=== PATIENT | female | born 1955 | race Caucasian/White ===

== ENCOUNTER 2016-09-08 17:32 | Emergency (ER) | payer MEDICAID, MEDICARE ==
[2016-09-08] MEDS ORDERED: Lidocaine 1% w/Epinephrine 1:100K 20 ML VIAL ONE (18:00)
[2016-09-08] MEDS ORDERED: Bacitracin Zinc 1 Packet ONE (18:10)
[2016-09-08] MEDS ORDERED: Adacel (T-DAP) 0.5 ML VIAL ONE (18:29)
== END 2016-09-08 18:27 | disposition home or self-care (01) ==
LOC: NAV ERS 17:32
DX: L02.412 Cutaneous abscess of left axilla (principal); E11.9 Type 2 diabetes mellitus without complications; E78.5 Hyperlipidemia, unspecified; E78.00 Pure hypercholesterolemia, unspecified; I10 Essential (primary) hypertension; Z79.4 Long term (current) use of insulin
CPT/HCPCS: 10060; 87070; 87205; 90471; 90715; J2001

== ENCOUNTER 2016-11-13 11:29 | Emergency (ER) | payer MEDICARE, MEDICAID ==
[2016-11-13] MEDS ORDERED: Sodium Chloride 0.9% 1,000 ML ONE ×2 (12:03→13:22)
[2016-11-13] MEDS ORDERED: Ondansetron HCl/PF 4 MG/2 ML Vial ONE (12:08)
[2016-11-13 12:26] LABS: INR-International Normal Ratio 1.1; PTT 29.8 SEC (22.9-36.1); Prothrombin Time 14.7 SEC (12.0-14.7)
[2016-11-13 12:36] LABS: ALT (SGPT) 36 U/L (0-55); AST (SGOT) 40 U/L (5-34); Albumin 3.7 g/dL (3.4-4.8); Alkaline Phosphatase 115 U/L (40-150); Anion Gap 17 mmol/L (10-20); BUN (Urea Nitrogen) 22 mg/dL (9.8-20.1); Bilirubin, Total 0.5 mg/dL (0.2-1.2); Calc. Creatinine Clearance 0 mL/min (70-130); Carbon Dioxide 20 mmol/L (23-31); Chloride 105 mmol/L (98-107); Estimated GFR-MDRD 68; Globulin 3.6 g/dL (2.4-3.5); Glucose 182 mg/dL (80-115); Lipase 40 U/L (8-78); Potassium 4.7 mmol/L (3.5-5.1); Protein, Total 7.3 g/dL (5.8-8.1); Sodium 137 mmol/L (136-145)
[2016-11-13 12:55] LABS: #Basophils 0.1 thou/uL (0.0-0.2); #Eosinphils 0.3 thou/uL (0.0-0.7); #Lymphocytes 1.4 thou/uL (1.20-3.40); #Monocytes 0.5 thou/uL (0.11-0.59); #Neutrophils 3.8 thou/uL (1.40-6.50); %Eosinophils 5.4 % (0.0-10.0); %Lymphocytes 23.6 % (21.0-51.0); %Monocytes 8.1 % (0.0-10.0); %Neutrophils 61.9 % (42.0-75.0); Anisocytosis SLIGHT = 6-15 cells (100X) (0-5/hpf); Hemoglobin 7.5 g/dL (12.0-16.0); Hypochromia MARKED = >30 cells (100X) (0-5/hpf); MDiff Complete? YES; Mean Corpuscular HGB CONC 30.3 g/dL (32.0-36.0); Mean Corpuscular Hemoglobin 21.7 pg (27.0-31.0); Mean Corpuscular Volume 71.8 fl (81.0-99.0); Microcytosis SLIGHT = 6-15 cells (100X) (0-5/hpf); Ovalocytes SLIGHT = 2-5 cells (100X) (0-1/hpf); Platelet Count 135 thou/uL (130-400); RBC Distribution Width 15.4 % (11.5-14.5); Red Blood Cell (RBC) Count 3.45 mill/uL (4.20-5.40); White Blood Cell (WBC) Count 6.1 thou/uL (4.8-10.8)
[2016-11-13] MEDS ORDERED: Morphine Sulfate 2 MG/ML SYRINGE ONE (13:56)
== END 2016-11-13 14:27 | disposition short-term general hospital (02) ==
LOC: NAV ERS 11:29
DX: R11.2 Nausea with vomiting, unspecified (principal); R19.7 Diarrhea, unspecified; D64.9 Anemia, unspecified; I25.10 Atherosclerotic heart disease of native coronary artery without angina pectoris; E11.9 Type 2 diabetes mellitus without complications; E78.5 Hyperlipidemia, unspecified; I10 Essential (primary) hypertension; K74.60 Unspecified cirrhosis of liver; Z87.891 Personal history of nicotine dependence; Z79.82 Long term (current) use of aspirin; Z79.4 Long term (current) use of insulin; Z79.899 Other long term (current) drug therapy
CPT/HCPCS: 36430; 80053; 83690; 85025; 85610; 85730; 86850; 86900; 86901; 96361; 96374; 96375; J2270; J2405; J7050; P9016

== ENCOUNTER 2016-11-18 08:02 | Outpatient (CLI) | payer MEDICARE, MEDICAID ==
[2016-11-18 08:32] LABS: Hemoglobin 7.7 g/dL (12.0-16.0)
== END 2016-11-18 08:03 | disposition home or self-care (01) ==
LOC: NAV LAB 08:02
PROVIDERS: ATTEND Family Medicine
DX: D64.9 Anemia, unspecified (principal)
CPT/HCPCS: 36415; 85014; 85018

== ENCOUNTER 2016-12-10 08:32 | Outpatient (CLI) | payer MEDICARE, MEDICAID | END 2016-12-10 08:33 | disposition home or self-care (01) | LOC: NAV LAB 08:32 | PROVIDERS: ATTEND Internal Medicine Cardiovascular Disease | DX: Z51.81 Encounter for therapeutic drug level monitoring (principal); Z79.899 Other long term (current) drug therapy | CPT/HCPCS: 36415; 80061; 84450; 84460 ==

== ENCOUNTER 2017-01-14 13:52 | Emergency (ER) | payer MEDICARE, MEDICAID ==
[2017-01-14 14:39] LABS: #Basophils 0.1 thou/uL (0.0-0.2); #Eosinphils 0.2 thou/uL (0.0-0.7); #Lymphocytes 2.2 thou/uL (1.20-3.40); #Monocytes 0.4 thou/uL (0.11-0.59); %Basophils 0.9 % (0.0-1.0); %Eosinophils 3.5 % (0.0-10.0); %Lymphocytes 32.1 % (21.0-51.0); %Monocytes 5.8 % (0.0-10.0); %Neutrophils 57.6 % (42.0-75.0); ALT (SGPT) 42 U/L (8-55); AST (SGOT) 56 U/L (5-34); Albumin 4.3 g/dL (3.4-4.8); Alkaline Phosphatase 116 U/L (40-150); Anion Gap 17 mmol/L (10-20); Anisocytosis MODERATE=16-30 cells (100X) (0-5/hpf); BUN (Urea Nitrogen) 17 mg/dL (9.8-20.1); Bilirubin, Total 0.4 mg/dL (0.2-1.2); CK (CPK) 87 U/L (29-168); Calc. Creatinine Clearance 0 mL/min (70-130); Calcium 9.7 mg/dL (7.8-10.44); Carbon Dioxide 21 mmol/L (23-31); Chloride 105 mmol/L (98-107); Estimated GFR-MDRD 71; Globulin 4.2 g/dL (2.4-3.5); Glucose 158 mg/dL (80-115); Hemoglobin 13.2 g/dL (12.0-16.0); MDiff Complete? YES; Mean Corpuscular HGB CONC 32.9 g/dL (32.0-36.0); Mean Corpuscular Hemoglobin 28.8 pg (27.0-31.0); Mean Corpuscular Volume 87.6 fl (81.0-99.0); Mean Platelet Volume 10.5 fL (7.4-10.4); Platelet Count 117 thou/uL (130-400); Potassium 4.3 mmol/L (3.5-5.1); Protein, Total 8.5 g/dL (6.0-8.3); RBC Distribution Width 18.9 % (11.5-14.5); RBC Morphology SCANNED; Red Blood Cell (RBC) Count 4.59 mill/uL (4.20-5.40); Sodium 139 mmol/L (136-145); White Blood Cell (WBC) Count 6.9 thou/uL (4.8-10.8)
[2017-01-14 14:41] LABS: CKMB 1.4 ng/mL (0-6.6); Troponin I Less than 0.010 ng/mL (< 0.028)
--- NOTE | 2017-01-14 15:07 | RAD ---
CHEST PA AND LATERAL: HISTORY: A 62-year-old female with stabbing chest pain primarily on the left side which began yesterday on an d off. FINDINGS: Atherosclerosis of the aorta. Surgical clips overlie the upper right chest and lower left chest ant eriorly. No confluent pneumonia, overt edema, or pleural effusion. IMPRESSION: Surgical clips overlie the chest. No acute intrathoracic disease. Atherosclerosis of the aorta. POS: [facility]
== END 2017-01-14 15:16 | disposition home or self-care (01) ==
LOC: NAV ERS 13:52
DX: R07.9 Chest pain, unspecified (principal); I25.10 Atherosclerotic heart disease of native coronary artery without angina pectoris; E11.9 Type 2 diabetes mellitus without complications; E78.5 Hyperlipidemia, unspecified; I10 Essential (primary) hypertension; Z87.891 Personal history of nicotine dependence; Z79.899 Other long term (current) drug therapy
CPT/HCPCS: 71020; 80053; 82553; 84484; 85025; 93005

== ENCOUNTER 2017-01-30 08:49 | Outpatient (CLI) | payer MEDICARE, MEDICAID ==
[2017-01-30] MEDS ORDERED: Iodixanol 320 MG/ML (100 ML BOT) ONE (09:00)
--- NOTE | 2017-01-30 10:57 | CT ---
CT ABDOMEN AND PELVIS WITH ORAL AND IV CONTRAST: Date: 01/30/17 HISTORY: Anemia, liver cirrhosis. FINDINGS: Comparison made with exams of 08/06/13 and 05/03/16. The lung bases are unremarkable. Nodular and cirrhotic appearance of the liver is again seen. There has been interval increase in the size of the low density lesion in the peripheral aspect of the inf erior right lobe of the liver currently measuring 12.0 mm (previously 7-8 mm). This was not seen on the exam of 08/06/13. No calcified gallstones are seen. The spleen measures 13.5 cm in length. The p ancreas and adrenal glands are unremarkable. There are cysts in the kidneys. No free air, free fluid, or lymphadenopathy noted in the abdomen or pelvis. There are vascular calci fications without evidence of aneurysmal dilatation of the abdominal aorta. There are degenerative c hanges in the spine. The small bowel loops are not abnormally dilated. There is fecal material in th e colon. IMPRESSION: 1. Cirrhosis of the liver. 2. Interval increase in the small low density lesion in the right lobe of the liver since 05/03/16. An ultrasound is recommended for better characterization. 3. Mild splenomegaly. 4. Bilateral renal cysts. POS: [facility]
== END 2017-01-30 08:50 | disposition home or self-care (01) ==
LOC: NAV CT 08:49
PROVIDERS: ATTEND Internal Medicine Gastroenterology
DX: D50.0 Iron deficiency anemia secondary to blood loss (chronic) (principal); K74.60 Unspecified cirrhosis of liver; J98.4 Other disorders of lung; R16.1 Splenomegaly, not elsewhere classified
CPT/HCPCS: 36415; 74177; 82565; Q9967

== ENCOUNTER 2017-06-16 07:57 | Outpatient (CLI) | payer MEDICARE, MEDICAID ==
--- NOTE | 2017-06-16 12:07 | ULT ---
ABDOMINAL ULTRASOUND: HISTORY: Followup liver lesion. COMPARISON: Comparison is made to a CT of 01/30/17 which described an enlarging low-density lesion in the lateral inferior right liver along the liver margin which measured approximately 1.2 cm on the 01/30/17 exam. This lesion has increased when compared to a CT of 05/03/16 at which time it measured approximately 0.8 cm. On today's ultrasound exam, a slightly hyperechoic lesion seen along the margin of the right lobe of the liver corresponding to a CT lesion. This lesion on ultrasound measures 1.7 cm and appears to sti ll continued enlargement. The liver is otherwise unremarkable in appearance. The gallbladder is slightly distended but there is no evidence of gallstone. Gallbladder wall thickn ess is normal. The common duct is normal caliber. Spleen is upper normal size measured at 14 cm. P ancreas is unremarkable as visualized. The right kidney measures 11.4 cm in length. Small cyst inferior right kidney measures approximately 1.0 cm. Left kidney measures 13 cm in length. There are at least 3 small cysts seen in the left kidney, all 3 measuring in the 1 to 1.5 cm range. No evidence of hydronephrosis. IMPRESSION: 1. Slightly hyperechoic mass lesion seen along the margin of the right lobe of the liver corresponds to the CT lesion. Measurements indicate continued enlargement of this lesion when compared to prior CT. 2. Mild splenomegaly. 3. Bilateral renal cysts as described. Due to the apparent enlargement of this liver lesion, further evaluation is recommended. Suggest MRI with and without contrast following liver mass protocol. POS: [facility]
== END 2017-06-16 07:58 | disposition home or self-care (01) ==
LOC: NAV ULT 07:57
PROVIDERS: ATTEND Internal Medicine Hospice and Palliative Medicine
DX: R10.11 Right upper quadrant pain (principal); N28.1 Cyst of kidney, acquired; R16.1 Splenomegaly, not elsewhere classified; R16.0 Hepatomegaly, not elsewhere classified
CPT/HCPCS: 76700

== ENCOUNTER 2017-06-25 15:07 | Emergency (ER) | payer MEDICARE, MEDICAID ==
[2017-06-25] MEDS ORDERED: Ondansetron HCl/PF 4 MG/2 ML Vial ONE (15:49)
[2017-06-25 15:52] LABS: Bilirubin Negative (Negative); Blood, Urine Negative (Negative); Clarity Clear (Clear); Glucose, Urine (Dipstick) 500 mg/dL (Negative); Leukocyte Small (Negative); Nitrite Negative (Negative); Protein, Urine (Dipstick) Negative (Neg-Trace)
[2017-06-25 15:59] LABS: RBC/HPF 0-3 HPF (0-3); Squamous Epithelial 0-3 HPF (0-3); WBC/HPF 0-3 HPF (0-3)
[2017-06-25 16:27] LABS: #Basophils 0.1 thou/uL (0.0-0.2); #Eosinphils 0.2 thou/uL (0.0-0.7); #Lymphocytes 2.3 thou/uL (1.20-3.40); #Monocytes 0.3 thou/uL (0.11-0.59); #Neutrophils 3.8 thou/uL (1.40-6.50); %Basophils 1.2 % (0.0-1.0); %Eosinophils 3.1 % (0.0-10.0); %Lymphocytes 34.1 % (21.0-51.0); %Monocytes 5.1 % (0.0-10.0); %Neutrophils 56.6 % (42.0-75.0); Mean Corpuscular HGB CONC 35.5 g/dL (32.0-36.0); Mean Corpuscular Hemoglobin 34.9 pg (27.0-31.0); Mean Corpuscular Volume 98.2 fl (81.0-99.0); Mean Platelet Volume 10.1 fL (7.4-10.4); Platelet Count 112 thou/uL (130-400); RBC Distribution Width 11.9 % (11.5-14.5); Red Blood Cell (RBC) Count 4.01 mill/uL (4.20-5.40); White Blood Cell (WBC) Count 6.6 thou/uL (4.8-10.8)
[2017-06-25 16:33] LABS: ALT (SGPT) 40 U/L (8-55); AST (SGOT) 34 U/L (5-34); Albumin 4.4 g/dL (3.4-4.8); Alkaline Phosphatase 139 U/L (40-150); Anion Gap 17 mmol/L (10-20); BUN (Urea Nitrogen) 26 mg/dL (9.8-20.1); Bilirubin, Total 0.5 mg/dL (0.2-1.2); CK (CPK) 80 U/L (29-168); Calc. Creatinine Clearance 0 mL/min (70-130); Calcium 9.6 mg/dL (7.8-10.44); Carbon Dioxide 21 mmol/L (23-31); Chloride 103 mmol/L (98-107); Estimated GFR-MDRD 59; Glucose 228 mg/dL (80-115); Lipase 37 U/L (8-78); Potassium 3.9 mmol/L (3.5-5.1); Protein, Total 8.4 g/dL (6.0-8.3); Sodium 137 mmol/L (136-145)
[2017-06-25 16:34] LABS: CKMB 1.4 ng/mL (0-6.6); Troponin I Less than 0.010 ng/mL (< 0.028)
--- NOTE | 2017-06-25 17:01 | RAD ---
SEMIUPRIGHT PORTABLE CHEST 1 VIEW: HISTORY: A 62-year-old female with abdominal pain, nausea, and vomiting. History of liver mass. FINDINGS: Surgical clips overlie the chest. Monitor leads are in place. There is atherosclerosis of the aorta . No confluent pneumonia, overt edema, or pleural effusion. IMPRESSION: Stable chest. No acute intrathoracic disease. POS: [facility]
[2017-06-25] MEDS ORDERED: HYDROcodone/Acetaminophen 5/325 mg Tablet ONE (17:14)
== END 2017-06-25 17:55 | disposition home or self-care (01) ==
LOC: NAV ERS 15:07
DX: R11.2 Nausea with vomiting, unspecified (principal); R10.11 Right upper quadrant pain; E11.9 Type 2 diabetes mellitus without complications; E78.5 Hyperlipidemia, unspecified; I10 Essential (primary) hypertension; I25.10 Atherosclerotic heart disease of native coronary artery without angina pectoris; K74.60 Unspecified cirrhosis of liver; Z87.891 Personal history of nicotine dependence; Z79.899 Other long term (current) drug therapy
CPT/HCPCS: 71010; 80053; 81003; 81015; 82553; 83690; 84484; 85025; 93005; 96374; J2405

== ENCOUNTER 2017-08-25 13:17 | Emergency (ER) | payer MEDICARE, MEDICAID ==
[2017-08-25] MEDS ORDERED: Morphine 10 MG/ML VIAL ONE (14:03)
[2017-08-25 14:22] LABS: ALT (SGPT) 26 U/L (8-55); AST (SGOT) 21 U/L (5-34); Albumin 3.9 g/dL (3.4-4.8); Alkaline Phosphatase 89 U/L (40-150); Anion Gap 19 mmol/L (10-20); BUN (Urea Nitrogen) 31 mg/dL (9.8-20.1); Bilirubin, Total 0.7 mg/dL (0.2-1.2); Calc. Creatinine Clearance 0 mL/min (70-130); Calcium 9.2 mg/dL (7.8-10.44); Carbon Dioxide 22 mmol/L (23-31); Chloride 102 mmol/L (98-107); Estimated GFR-MDRD 45; Globulin 3.7 g/dL (2.4-3.5); Glucose 205 mg/dL (80-115); Potassium 4.7 mmol/L (3.5-5.1); Protein, Total 7.6 g/dL (6.0-8.3); Sodium 138 mmol/L (136-145)
[2017-08-25 14:31] LABS: #Basophils 0.1 thou/uL (0.0-0.2); #Eosinphils 0.2 thou/uL (0.0-0.7); #Lymphocytes 2.2 thou/uL (1.20-3.40); #Monocytes 0.5 thou/uL (0.11-0.59); #Neutrophils 3.4 thou/uL (1.40-6.50); %Eosinophils 2.9 % (0.0-10.0); %Lymphocytes 34.9 % (21.0-51.0); %Monocytes 7.3 % (0.0-10.0); %Neutrophils 53.9 % (42.0-75.0); Hemoglobin 13.2 g/dL (12.0-16.0); Mean Corpuscular HGB CONC 33.1 g/dL (32.0-36.0); Mean Corpuscular Hemoglobin 31.1 pg (27.0-31.0); Mean Corpuscular Volume 93.9 fl (81.0-99.0); Platelet Count 88 thou/uL (130-400); RBC Distribution Width 11.9 % (11.5-14.5); Red Blood Cell (RBC) Count 4.25 mill/uL (4.20-5.40); White Blood Cell (WBC) Count 6.3 thou/uL (4.8-10.8)
== END 2017-08-25 14:50 | disposition home or self-care (01) ==
LOC: NAV ERS 13:17
DX: R10.10 Upper abdominal pain, unspecified (principal); R16.0 Hepatomegaly, not elsewhere classified; R16.1 Splenomegaly, not elsewhere classified; I25.10 Atherosclerotic heart disease of native coronary artery without angina pectoris; E11.9 Type 2 diabetes mellitus without complications; K74.60 Unspecified cirrhosis of liver; E78.5 Hyperlipidemia, unspecified; I10 Essential (primary) hypertension; Z87.891 Personal history of nicotine dependence; Z79.899 Other long term (current) drug therapy
CPT/HCPCS: 36415; 80053; 85025; 96372; 99284; J2270

== ENCOUNTER 2018-02-28 09:12 | Emergency (ER) | payer MEDICARE, MEDICAID ==
[2018-02-28] MEDS ORDERED: Ondansetron HCl/PF 4 MG/2 ML Vial ONE (10:14)
[2018-02-28] MEDS ORDERED: Meclizine HCl 25 MG TAB ONE (10:15)
[2018-02-28 10:28] LABS: Bilirubin Negative (Negative); Blood, Urine Moderate (Negative); Clarity Clear (Clear); Glucose, Urine (Dipstick) Negative (Negative); Leukocyte Large (Negative); Nitrite Negative (Negative); Protein, Urine (Dipstick) Negative (Neg-Trace); Urobilinogen 0.2 mg/dL (0.2-1.0); pH, Urine 5.5 (5.0-9.0)
[2018-02-28 10:33] LABS: ALT (SGPT) 29 U/L (8-55); AST (SGOT) 28 U/L (5-34); Albumin 4.1 g/dL (3.4-4.8); Alkaline Phosphatase 80 U/L (40-150); Anion Gap 16 mmol/L (10-20); BUN (Urea Nitrogen) 25 mg/dL (9.8-20.1); Bilirubin, Total 0.7 mg/dL (0.2-1.2); CK (CPK) 61 U/L (29-168); Calc. Creatinine Clearance 0 mL/min (70-130); Calcium 9.4 mg/dL (7.8-10.44); Carbon Dioxide 21 mmol/L (23-31); Chloride 104 mmol/L (98-107); Estimated GFR-MDRD 61; Globulin 3.6 g/dL (2.4-3.5); Glucose 176 mg/dL (80-115); Lipase 29 U/L (8-78); Potassium 4.2 mmol/L (3.5-5.1); Protein, Total 7.7 g/dL (6.0-8.3); Sodium 137 mmol/L (136-145)
[2018-02-28 10:34] LABS: Troponin I Less than 0.010 ng/mL (< 0.028)
[2018-02-28 10:37] LABS: Bacteria/HPF Rare-Few HPF (None Seen); RBC/HPF 0-3 HPF (0-3); Squamous Epithelial 0-3 HPF (0-3)
[2018-02-28 10:39] LABS: #Basophils 0.1 thou/uL (0.0-0.2); #Eosinphils 0.2 thou/uL (0.0-0.7); #Lymphocytes 1.6 thou/uL (1.20-3.40); #Monocytes 0.3 thou/uL (0.11-0.59); %Basophils 1.1 % (0.0-1.0); %Eosinophils 4.5 % (0.0-10.0); %Lymphocytes 31.4 % (21.0-51.0); %Monocytes 5.2 % (0.0-10.0); %Neutrophils 57.8 % (42.0-75.0); Hemoglobin 12.3 g/dL (12.0-16.0); Mean Corpuscular HGB CONC 33.1 g/dL (32.0-36.0); Mean Corpuscular Hemoglobin 30.9 pg (27.0-31.0); Mean Corpuscular Volume 93.4 fL (78.0-98.0); Mean Platelet Volume 10.4 fL (7.4-10.4); Platelet Count 115 thou/uL (130-400); RBC Distribution Width 12.7 % (11.5-14.5); Red Blood Cell (RBC) Count 3.97 mill/uL (4.20-5.40); White Blood Cell (WBC) Count 5.1 thou/uL (4.8-10.8)
--- NOTE | 2018-02-28 10:39 | CT ---
CT HEAD WITHOUT CONTRAST: Multiple axial tomograms were obtained through the head without IV enhancement. INDICATION: Dizziness. COMPARISON: Comparison is made to a head CT dated 10/14/13. FINDINGS: There is volume loss in the right posterior inferior cerebellum which is a stable finding from the pr ior study. Ventricles have normal size and position and are stable in appearance. There is no evidence of intra cranial mass, hemorrhage, or infarct. Sinuses and mastoids are well aerated. IMPRESSION: No evidence of acute process. POS: [facility]
== END 2018-02-28 11:57 | disposition home or self-care (01) ==
LOC: NAV ERS 09:12
DX: H81.13 Benign paroxysmal vertigo, bilateral (principal); I25.10 Atherosclerotic heart disease of native coronary artery without angina pectoris; E11.9 Type 2 diabetes mellitus without complications; E78.5 Hyperlipidemia, unspecified; K74.60 Unspecified cirrhosis of liver; I10 Essential (primary) hypertension; Z87.891 Personal history of nicotine dependence; Z79.82 Long term (current) use of aspirin; Z79.899 Other long term (current) drug therapy
CPT/HCPCS: 70450; 80053; 81003; 81015; 82550; 82553; 83690; 84484; 85025; 93005; 96374; J2405

== ENCOUNTER 2018-05-05 10:37 | Outpatient (CLI) | payer MEDICARE, MEDICAID ==
--- NOTE | 2018-05-05 12:00 | RAD ---
CHEST TWO VIEWS: 05/05/2018 PROVIDED CLINICAL HISTORY: Pneumonia. COMPARISON: 01/14/2017 FINDINGS: Cardiac and mediastinal silhouette are unchanged in appearance. Surgical clips are again seen overly ing the chest. No focal consolidation, pleural fluid, or pneumothorax apparent. Degenerative change s are noted involving the thoracic spine. IMPRESSION: No evidence for an acute cardiopulmonary process. POS: [facility]
== END 2018-05-05 10:38 | disposition home or self-care (01) ==
LOC: NAV RAD 10:37
PROVIDERS: ATTEND Family Medicine
DX: J18.9 Pneumonia, unspecified organism (principal)
CPT/HCPCS: 71046

== ENCOUNTER 2018-08-12 18:09 | Emergency (ER) | payer MEDICARE, MEDICAID ==
[2018-08-12] MEDS ORDERED: Meclizine HCl 25 MG TAB ONE (18:41)
[2018-08-12] MEDS ORDERED: Ketorolac Tromethamine 30 MG/ML VIAL ONE (18:46)
[2018-08-12] MEDS ORDERED: Sodium Chloride 0.9% 1,000 ML ONE (18:46)
[2018-08-12 18:59] LABS: Bilirubin Negative (Negative); Blood, Urine Large (Negative); Glucose, Urine (Dipstick) Negative (Negative); Leukocyte Moderate (Negative); Nitrite Negative (Negative); Protein, Urine (Dipstick) Trace mg/dL (Neg-Trace); Specific Gravity, Urine 1.025 (1.005-1.030); pH, Urine 6.5 (5.0-9.0)
[2018-08-12 19:08] LABS: Clarity SL HAZY (Clear)
[2018-08-12 19:09] LABS: Bacteria/HPF 2+ HPF (None Seen); Squamous Epithelial 0-3 HPF (0-3); WBC/HPF 0-3 HPF (0-3)
[2018-08-12 19:10] LABS: #Basophils 0.1 thou/uL (0.0-0.2); #Eosinphils 0.3 thou/uL (0.0-0.7); #Lymphocytes 2.6 thou/uL (1.20-3.40); #Monocytes 0.5 thou/uL (0.11-0.59); #Neutrophils 3.7 thou/uL (1.40-6.50); %Eosinophils 4.6 % (0.0-10.0); %Lymphocytes 35.7 % (21.0-51.0); %Neutrophils 51.7 % (42.0-75.0); Hemoglobin 14.6 g/dL (12.0-16.0); Mean Corpuscular HGB CONC 32.3 g/dL (32.0-36.0); Mean Corpuscular Hemoglobin 30.7 pg (27.0-31.0); Mean Platelet Volume 11.3 fL (7.4-10.4); Platelet Count 156 thou/uL (130-400); RBC Distribution Width 12.5 % (11.5-14.5); Red Blood Cell (RBC) Count 4.76 mill/uL (4.20-5.40); White Blood Cell (WBC) Count 7.2 thou/uL (4.8-10.8)
[2018-08-12 19:25] LABS: ALT (SGPT) 36 U/L (8-55); AST (SGOT) 38 U/L (5-34); Albumin 4.5 g/dL (3.4-4.8); Alkaline Phosphatase 140 U/L (40-150); Anion Gap 19 mmol/L (10-20); BUN (Urea Nitrogen) 21 mg/dL (9.8-20.1); Bilirubin, Total 0.4 mg/dL (0.2-1.2); Calc. Creatinine Clearance 0 mL/min (70-130); Calcium 10.6 mg/dL (7.8-10.44); Carbon Dioxide 19 mmol/L (23-31); Chloride 104 mmol/L (98-107); Estimated GFR-MDRD 55; Globulin 4.9 g/dL (2.4-3.5); Glucose 178 mg/dL (80-115); Potassium 4.4 mmol/L (3.5-5.1); Protein, Total 9.4 g/dL (6.0-8.3); Sodium 138 mmol/L (136-145)
== END 2018-08-12 20:01 | disposition home or self-care (01) ==
LOC: NAV ERS 18:09
DX: H81.10 Benign paroxysmal vertigo, unspecified ear (principal); I25.10 Atherosclerotic heart disease of native coronary artery without angina pectoris; E11.9 Type 2 diabetes mellitus without complications; E78.5 Hyperlipidemia, unspecified; I10 Essential (primary) hypertension; Z87.891 Personal history of nicotine dependence
CPT/HCPCS: 80053; 81003; 81015; 85025; 96361; 96374; J1885; J7050

== ENCOUNTER 2018-09-24 13:19 | Emergency (ER) | payer MEDICARE, MEDICAID ==
[2018-09-24 13:59] LABS: #Basophils 0.1 thou/uL (0.0-0.2); #Eosinphils 0.2 thou/uL (0.0-0.7); #Lymphocytes 2.3 thou/uL (1.20-3.40); #Monocytes 0.5 thou/uL (0.11-0.59); #Neutrophils 4.8 thou/uL (1.40-6.50); %Basophils 0.8 % (0.0-1.0); %Eosinophils 3.1 % (0.0-10.0); %Monocytes 6.2 % (0.0-10.0); %Neutrophils 60.9 % (42.0-75.0); Hemoglobin 13.7 g/dL (12.0-16.0); Mean Corpuscular HGB CONC 33.1 g/dL (32.0-36.0); Mean Corpuscular Hemoglobin 31.3 pg (27.0-31.0); Mean Corpuscular Volume 94.5 fL (78.0-98.0); Mean Platelet Volume 9.8 fL (7.4-10.4); Platelet Count 143 thou/uL (130-400); RBC Distribution Width 13.6 % (11.5-14.5); Red Blood Cell (RBC) Count 4.39 mill/uL (4.20-5.40); White Blood Cell (WBC) Count 7.8 thou/uL (4.8-10.8)
[2018-09-24] MEDS ORDERED: Ondansetron PF 4 MG/2 ML Vial ONE (14:00)
[2018-09-24] MEDS ORDERED: Mag-Al Plus 1200 MG/1200 MG/120 MG/30 ML UDCUP ONE (14:00)
[2018-09-24] MEDS ORDERED: Lidocaine Viscous Sol 2% 15 ml UD Cup ONE (14:00)
[2018-09-24 14:12] LABS: ALT (SGPT) 38 U/L (8-55); AST (SGOT) 46 U/L (5-34); Albumin 4.2 g/dL (3.4-4.8); Alkaline Phosphatase 132 U/L (40-150); Anion Gap 18 mmol/L (10-20); BUN (Urea Nitrogen) 26 mg/dL (9.8-20.1); Bilirubin, Total 0.6 mg/dL (0.2-1.2); CK (CPK) 51 U/L (29-168); Calc. Creatinine Clearance 0 mL/min (70-130); Calcium 10.2 mg/dL (7.8-10.44); Carbon Dioxide 23 mmol/L (23-31); Chloride 101 mmol/L (98-107); Estimated GFR-MDRD 50; Globulin 4.1 g/dL (2.4-3.5); Glucose 244 mg/dL (80-115); Lipase 48 U/L (8-78); Potassium 4.5 mmol/L (3.5-5.1); Protein, Total 8.3 g/dL (6.0-8.3); Sodium 137 mmol/L (136-145)
[2018-09-24 14:28] LABS: Bilirubin Negative (Negative); Blood, Urine Negative (Negative); Clarity Clear (Clear); Glucose, Urine (Dipstick) Negative (Negative); Leukocyte Large (Negative); Nitrite Negative (Negative); Protein, Urine (Dipstick) Negative (Neg-Trace); Specific Gravity, Urine 1.015 (1.005-1.030); pH, Urine 5.5 (5.0-9.0)
[2018-09-24 14:40] LABS: Bacteria/HPF Rare-Few HPF (None Seen); RBC/HPF 0-3 HPF (0-3)
--- NOTE | 2018-09-24 14:47 | RAD ---
CHEST ONE VIEW ABDOMEN TWO VIEWS: History: Nausea and vomiting with abdominal pain. Comparison: 05-05-18 chest radiograph FINDINGS: Surgical clips noted in the right upper chest. Heart size is normal. Atherosclerosis of the aorta. In the abdomen there are some vascular calcifications. No evidence for large or small bowel obstructi on. There is some scattered gas and fecal material in the colon. No evidence for free intraperitoneal air. IMPRESSION: No significant acute process in the chest. Atherosclerosis of the aorta. No acute process in the abdo men. No bowel obstruction or free air or overt calculus. Prominent vascular calcifications. POS: [facility]
== END 2018-09-24 15:20 | disposition home or self-care (01) ==
LOC: NAV ERS 13:19
DX: R10.13 Epigastric pain (principal); I25.10 Atherosclerotic heart disease of native coronary artery without angina pectoris; E11.9 Type 2 diabetes mellitus without complications; E78.5 Hyperlipidemia, unspecified; I10 Essential (primary) hypertension; Z87.891 Personal history of nicotine dependence; Z79.4 Long term (current) use of insulin; Z79.899 Other long term (current) drug therapy; Z79.82 Long term (current) use of aspirin
CPT/HCPCS: 74022; 80053; 81003; 81015; 82550; 83690; 84484; 85025; 93005; 96374; J2405

== ENCOUNTER 2018-11-12 11:33 | Emergency (ER) | payer MEDICARE, MEDICAID ==
[2018-11-12 12:19] LABS: #Lymphocytes 0.9 thou/uL (1.20-3.40); #Monocytes 0.3 thou/uL (0.11-0.59); #Neutrophils 6.3 thou/uL (1.40-6.50); %Basophils 0.5 % (0.0-1.0); %Eosinophils 0.5 % (0.0-10.0); %Lymphocytes 11.6 % (21.0-51.0); %Monocytes 4.2 % (0.0-10.0); %Neutrophils 83.3 % (42.0-75.0); Hemoglobin 9.3 g/dL (12.0-16.0); Mean Corpuscular HGB CONC 32.3 g/dL (32.0-36.0); Mean Corpuscular Hemoglobin 29.6 pg (27.0-31.0); Mean Corpuscular Volume 91.7 fL (78.0-98.0); Mean Platelet Volume 6.8 fL (7.4-10.4); Platelet Count 275 thou/uL (130-400); Red Blood Cell (RBC) Count 3.14 mill/uL (4.20-5.40); White Blood Cell (WBC) Count 7.6 thou/uL (4.8-10.8)
[2018-11-12 12:40] LABS: ALT (SGPT) 15 U/L (8-55); AST (SGOT) 17 U/L (5-34); Albumin 3.7 g/dL (3.4-4.8); Alkaline Phosphatase 107 U/L (40-150); Anion Gap 18 mmol/L (10-20); BUN (Urea Nitrogen) 16 mg/dL (9.8-20.1); Bilirubin, Total 0.4 mg/dL (0.2-1.2); Calc. Creatinine Clearance 0 mL/min (70-130); Calcium 9.1 mg/dL (7.8-10.44); Carbon Dioxide 19 mmol/L (23-31); Chloride 101 mmol/L (98-107); Estimated GFR-MDRD 47; Globulin 3.3 g/dL (2.4-3.5); Glucose 213 mg/dL (80-115); Potassium 3.9 mmol/L (3.5-5.1); Sodium 134 mmol/L (136-145)
[2018-11-12] MEDS ORDERED: Magnesium Sulfate 2 GM/NS 0.9% 50 ML BAG ONE ×2 (13:13→15:03)
== END 2018-11-12 15:42 | disposition home or self-care (01) ==
LOC: NAV ERS 11:33
DX: E83.42 Hypomagnesemia (principal); I25.10 Atherosclerotic heart disease of native coronary artery without angina pectoris; E11.9 Type 2 diabetes mellitus without complications; E78.5 Hyperlipidemia, unspecified; I10 Essential (primary) hypertension; Z87.891 Personal history of nicotine dependence; Z79.899 Other long term (current) drug therapy; Z79.82 Long term (current) use of aspirin
CPT/HCPCS: 80053; 83735; 85025; 93005; 94760; 96365; 96366; J3475

== ENCOUNTER → 2018-11-13 | Day surgery (SDC) | payer MEDICARE, MEDICAID ==
[~2018-11-13] MED LIST: Magnesium Sulfate 2 GM/NS 0.9% 50 ML BAG ONE
== END ==
LOC: NAV LAB 09:12 → NAV ER/OP 09:12 → EDSTATUS 09:55
PROVIDERS: ATTEND Family Medicine
DX: E83.42 Hypomagnesemia (principal); Z91.041 Radiographic dye allergy status
CPT/HCPCS: 36415; 83735; J3475

== ENCOUNTER → 2018-11-17 | Day surgery (SDC) | payer MEDICARE, MEDICAID | LOC: NAV ER/OP 14:25 | PROVIDERS: ATTEND Family Medicine | DX: E83.42 Hypomagnesemia (principal); Z91.041 Radiographic dye allergy status | CPT/HCPCS: 83735; 96365; J3475 ==

== ENCOUNTER 2019-02-17 12:18 | Outpatient (CLI) | payer MEDICARE, MEDICAID ==
--- NOTE | 2019-02-17 13:17 | RAD ---
RADIOGRAPH RIGHT SHOULDER 3 VIEWS: 02/17/19 HISTORY: 64-year-old female with right shoulder pain without mention of trauma. FINDINGS: There is a very small 0.5 x 0.3 cm soft tissue calcification slightly lateral to the humeral head. Mo derate DJD at AC joint. Moderate DJD at inferior aspect of glenohumeral joint. Upper aspect of that j oint has no high grade DJD. No subluxation. No acute fracture. Surgical clips overlie the right upper lung zone. IMPRESSION: 1. 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 The acute manifestation of this wou ld be calcified tendonitis. 2. Moderate osteoarthrosis of glenohumeral joint and acromioclavicular joint. POS: [facility]
== END 2019-02-17 12:19 | disposition home or self-care (01) ==
LOC: NAV RAD 12:18
PROVIDERS: ATTEND Family Medicine
DX: M25.511 Pain in right shoulder (principal); M11.011 Hydroxyapatite deposition disease, right shoulder; M19.011 Primary osteoarthritis, right shoulder

== ENCOUNTER 2019-06-07 10:35 | Emergency (ER) | payer MEDICARE, MEDICAID ==
[2019-06-07] MEDS ORDERED: hydrOXYzine 25 MG TAB ONE (11:01)
[2019-06-07 11:33] LABS: ALT (SGPT) 362 U/L (8-55); AST (SGOT) 211 U/L (5-34); Albumin 4.6 g/dL (3.4-4.8); Alkaline Phosphatase 311 U/L (40-110); Anion Gap 16 mmol/L (10-20); BUN (Urea Nitrogen) 37 mg/dL (9.8-20.1); Bilirubin, Total 0.7 mg/dL (0.2-1.2); Calc. Creatinine Clearance 0 mL/min (70-130); Calcium 9.9 mg/dL (7.8-10.44); Carbon Dioxide 22 mmol/L (23-31); Chloride 104 mmol/L (98-107); Estimated GFR-MDRD 38; Globulin 3.6 g/dL (2.4-3.5); Glucose 113 mg/dL (80-115); Potassium 5.3 mmol/L (3.5-5.1); Protein, Total 8.2 g/dL (6.0-8.3); Sodium 137 mmol/L (136-145)
== END 2019-06-07 11:45 | disposition home or self-care (01) ==
LOC: NAV ERS 10:35
DX: L29.9 Pruritus, unspecified (principal); E11.9 Type 2 diabetes mellitus without complications; K74.60 Unspecified cirrhosis of liver; E78.5 Hyperlipidemia, unspecified; E78.00 Pure hypercholesterolemia, unspecified; I10 Essential (primary) hypertension; I25.10 Atherosclerotic heart disease of native coronary artery without angina pectoris; F17.210 Nicotine dependence, cigarettes, uncomplicated; Z85.05 Personal history of malignant neoplasm of liver; Z94.4 Liver transplant status; Z79.82 Long term (current) use of aspirin; Z79.899 Other long term (current) drug therapy
CPT/HCPCS: 80053; 99283

== ENCOUNTER 2019-08-12 11:14 | Emergency (ER) | payer MEDICARE, MEDICAID ==
[2019-08-12] MEDS ORDERED: Ondansetron ODT 4 MG TAB ONE (11:37)
[2019-08-12] MEDS ORDERED: Sodium Chloride 0.9% 1,000 ML ONE ×2 (11:50→13:34)
[2019-08-12] MEDS ORDERED: Ondansetron PF 4 MG/2 ML Vial ONE (12:23)
[2019-08-12 12:27] LABS: ALT (SGPT) 146 U/L (8-55); AST (SGOT) 161 U/L (5-34); Albumin 3.4 g/dL (3.4-4.8); Alkaline Phosphatase 364 U/L (40-110); Anion Gap 17 mmol/L (10-20); BUN (Urea Nitrogen) 17 mg/dL (9.8-20.1); Bilirubin, Total 8.5 mg/dL (0.2-1.2); CK (CPK) 33 U/L (29-168); Calc. Creatinine Clearance 0 mL/min (70-130); Calcium 9.7 mg/dL (7.8-10.44); Carbon Dioxide 22 mmol/L (23-31); Chloride 101 mmol/L (98-107); Estimated GFR-MDRD 45; Globulin 4.4 g/dL (2.4-3.5); Glucose 214 mg/dL (80-115); Lipase 11 U/L (8-78); Potassium 4.1 mmol/L (3.5-5.1); Protein, Total 7.8 g/dL (6.0-8.3); Sodium 136 mmol/L (136-145)
[2019-08-12 12:33] LABS: #Lymphocytes 0.7 thou/uL (1.20-3.40); #Monocytes 0.2 thou/uL (0.11-0.59); %Basophils 1.2 % (0.0-1.0); %Eosinophils 0.5 % (0.0-10.0); %Lymphocytes 18.1 % (21.0-51.0); %Monocytes 5.3 % (0.0-10.0); %Neutrophils 74.9 % (42.0-75.0); Hemoglobin 15.8 g/dL (12.0-16.0); Mean Corpuscular HGB CONC 30.7 g/dL (32.0-36.0); Mean Corpuscular Hemoglobin 29.8 pg (27.0-31.0); Mean Corpuscular Volume 96.8 fL (78.0-98.0); Platelet Count 106 thou/uL (130-400); RBC Distribution Width 14.4 % (11.5-14.5)
[2019-08-12] MEDS ORDERED: Piperacillin/Tazobactam 3.375 GM VIAL ONE (13:34)
[2019-08-12] MEDS ORDERED: Sodium Chloride 0.9% 100 ML ONE (13:34)
[2019-08-12 13:51] LABS: Bilirubin Large (Negative); Blood, Urine Trace (Negative); Clarity Clear (Clear); Glucose, Urine (Dipstick) 100 mg/dL (Negative); Leukocyte Negative (Negative); Nitrite Negative (Negative); Protein, Urine (Dipstick) 100 mg/dL (Neg-Trace)
[2019-08-12 14:29] LABS: Bacteria/HPF 1+ HPF (None Seen); RBC/HPF 0-3 HPF (0-3); Squamous Epithelial 0-3 HPF (0-3); WBC/HPF None Seen HPF (0-3)
== END 2019-08-12 14:36 | disposition short-term general hospital (02) ==
LOC: NAV ERS 11:14
DX: R11.2 Nausea with vomiting, unspecified (principal); R10.10 Upper abdominal pain, unspecified; I25.2 Old myocardial infarction; K21.9 Gastro-esophageal reflux disease without esophagitis; E11.9 Type 2 diabetes mellitus without complications; E78.5 Hyperlipidemia, unspecified; Z87.891 Personal history of nicotine dependence; Z79.899 Other long term (current) drug therapy
CPT/HCPCS: 80053; 81003; 81015; 82550; 83605; 83690; 84484; 85025; 93005; 96361; 96365; 96375; J2405; J2543; J3490; J7050; Q0162

== ENCOUNTER 2019-09-04 08:18 | Emergency (ER) | payer MEDICARE, MEDICAID ==
[2019-09-04 09:06] LABS: #Lymphocytes 0.8 thou/uL (1.20-3.40); #Monocytes 0.3 thou/uL (0.11-0.59); #Neutrophils 2.7 thou/uL (1.40-6.50); %Basophils 0.8 % (0.0-1.0); %Eosinophils 1.2 % (0.0-10.0); %Lymphocytes 20.3 % (21.0-51.0); %Monocytes 8.6 % (0.0-10.0); %Neutrophils 69.1 % (42.0-75.0); Hemoglobin 13.7 g/dL (12.0-16.0); Mean Corpuscular HGB CONC 32.7 g/dL (32.0-36.0); Mean Corpuscular Hemoglobin 30.6 pg (27.0-31.0); Mean Corpuscular Volume 93.7 fL (78.0-98.0); Mean Platelet Volume 11.5 fL (7.4-10.4); Platelet Count 64 thou/uL (130-400); RBC Distribution Width 15.6 % (11.5-14.5); Red Blood Cell (RBC) Count 4.49 mill/uL (4.20-5.40); White Blood Cell (WBC) Count 3.9 thou/uL (4.8-10.8)
[2019-09-04 09:16] LABS: ALT (SGPT) 45 U/L (8-55); AST (SGOT) 62 U/L (5-34); Albumin 3.1 g/dL (3.4-4.8); Alkaline Phosphatase 279 U/L (40-110); Anion Gap 16 mmol/L (10-20); BUN (Urea Nitrogen) 17 mg/dL (9.8-20.1); Bilirubin, Total 6.5 mg/dL (0.2-1.2); Calc. Creatinine Clearance 0 mL/min (70-130); Calcium 8.8 mg/dL (7.8-10.44); Carbon Dioxide 22 mmol/L (23-31); Chloride 101 mmol/L (98-107); Estimated GFR-MDRD 68; Globulin 3.5 g/dL (2.4-3.5); Potassium 3.5 mmol/L (3.5-5.1); Protein, Total 6.6 g/dL (6.0-8.3); Sodium 135 mmol/L (136-145)
[2019-09-04 09:18] LABS: Glucose 188 mg/dL (80-115)
[2019-09-04 09:19] LABS: Critical Call Chemistry NOT CALLED
[2019-09-04 09:25] LABS: Bilirubin Negative (Negative); Blood, Urine Negative (Negative); Glucose, Urine (Dipstick) Negative (Negative); Leukocyte Trace (Negative); Nitrite Negative (Negative); Protein, Urine (Dipstick) Trace mg/dL (Neg-Trace)
[2019-09-04 09:33] LABS: Clarity SL HAZY (Clear)
[2019-09-04 09:34] LABS: Bacteria/HPF 1+ HPF (None Seen); RBC/HPF 0-3 HPF (0-3); WBC/HPF 0-3 HPF (0-3)
--- NOTE | 2019-09-04 10:27 | CT ---
CT of abdomen and pelvis: 09/04/2019 COMPARISON: 12/16/2018 HISTORY: Pain TECHNIQUE: Axial CT imaging at 5 mm intervals from lung bases through pubic symphysis without contras t. Coronal reformatted imaging obtained. FINDINGS: Lack of contrast media limits assessment of the viscera, bowel, vascular structures, and fo r lymphadenopathy. Trace right pleural effusion. Incompletely assessed diffuse coronary arterial calcification. No free intraperitoneal air. The spleen is mildly enlarged measuring 14.7 cm in craniocaudal dimension. Assessment of the hepatic parenchyma is limited on noncontrast enhanced imaging. There is a new stent in the common bile duct. There is new small volume of associated gas within the common bile duct and the left intrahepatic biliary ducts. There are clips in the raul hepatis. Nonspecific small volume free fluid is seen adjacent to the right lobe of the liver, increased in vol ume when compared to the prior exam. New small volume fluid noted in bilateral paracolic gutters. Pancreas is poorly assessed without contrast. Bilateral adrenal glands grossly unremarkable. Two Small left renal cysts are again noted. Nonspecific small volume new free fluid in the pelvic cul -de-sac. No evidence for bowel obstruction. Extensive atherosclerotic calcification of the abdominal aorta and its branches noted. There is multilevel lower lumbar spine facet hypertrophy. No worrisome lytic or blastic bone lesions. There is mild stranding of the fat within the right upper quadrant/raul hepatis which could be infla mmatory in nature. Venous varices are seen within the subcutaneous fat of the anterior abdominal/pelvic wall. Foci of hyperdensity within the ventral subcutaneous fat suggests injection si ankur. IMPRESSION: Limited assessment secondary to lack of contrast media. No evidence for obstructive uropa thy is seen on either side. No evidence for free intraperitoneal air or small bowel obstruction. There is new small volume free fluid within the abdomen/pelvis. Interval placement of a common bile duct stent. Adjacent fat stranding in the right upper quadrant ma y be associated with an inflammatory process or could be secondary to a generalized systemic process given small volume diffuse new ascites.
[2019-09-04] MEDS ORDERED: Orphenadrine Citrate 60 MG/2 ML VIAL ONE (10:42)
== END 2019-09-04 11:05 | disposition home or self-care (01) ==
LOC: NAV ERS 08:18
DX: M54.5 Low back pain (principal); I25.10 Atherosclerotic heart disease of native coronary artery without angina pectoris; E11.9 Type 2 diabetes mellitus without complications; I25.2 Old myocardial infarction; E78.5 Hyperlipidemia, unspecified; K74.60 Unspecified cirrhosis of liver; E78.00 Pure hypercholesterolemia, unspecified; Z87.891 Personal history of nicotine dependence; Z79.891 Long term (current) use of opiate analgesic; Z79.899 Other long term (current) drug therapy; Z79.82 Long term (current) use of aspirin; Z79.4 Long term (current) use of insulin
CPT/HCPCS: 74176; 80053; 81003; 81015; 85025; 96374; J2360

== ENCOUNTER 2019-09-19 11:52 | Emergency (ER) | payer MEDICARE, MEDICAID ==
[2019-09-19] MEDS ORDERED: Morphine 2 MG/ML SYRINGE ONE (12:31)
[2019-09-19] MEDS ORDERED: Ondansetron PF 4 MG/2 ML Vial ONE (12:31)
[2019-09-19 12:44] LABS: ALT (SGPT) 41 U/L (8-55); AST (SGOT) 98 U/L (5-34); Albumin 3.2 g/dL (3.4-4.8); Alkaline Phosphatase 225 U/L (40-110); Anion Gap 17 mmol/L (10-20); BUN (Urea Nitrogen) 21 mg/dL (9.8-20.1); Bilirubin, Total 7.7 mg/dL (0.2-1.2); Calc. Creatinine Clearance 0 mL/min (70-130); Calcium 8.4 mg/dL (7.8-10.44); Carbon Dioxide 25 mmol/L (23-31); Chloride 94 mmol/L (98-107); Estimated GFR-MDRD 51; Globulin 3.4 g/dL (2.4-3.5); Glucose 202 mg/dL (80-115); Potassium 3.5 mmol/L (3.5-5.1); Protein, Total 6.6 g/dL (6.0-8.3); Sodium 132 mmol/L (136-145)
[2019-09-19 12:54] LABS: #Lymphocytes 0.8 thou/uL (1.20-3.40); #Monocytes 0.6 thou/uL (0.11-0.59); #Neutrophils 5.5 thou/uL (1.40-6.50); %Basophils 0.5 % (0.0-1.0); %Lymphocytes 10.9 % (21.0-51.0); %Monocytes 9.2 % (0.0-10.0); %Neutrophils 79.4 % (42.0-75.0); Hemoglobin 14.8 g/dL (12.0-16.0); Mean Corpuscular Hemoglobin 30.1 pg (27.0-31.0); Mean Corpuscular Volume 94.2 fL (78.0-98.0); Mean Platelet Volume 9.8 fL (7.4-10.4); Platelet Count 116 thou/uL (130-400); RBC Distribution Width 14.6 % (11.5-14.5)
== END 2019-09-19 14:36 | disposition short-term general hospital (02) ==
LOC: NAV ERS 11:52
DX: M79.89 Other specified soft tissue disorders (principal); I25.2 Old myocardial infarction; I25.10 Atherosclerotic heart disease of native coronary artery without angina pectoris; K21.9 Gastro-esophageal reflux disease without esophagitis; E11.9 Type 2 diabetes mellitus without complications; K74.60 Unspecified cirrhosis of liver; E78.5 Hyperlipidemia, unspecified; E78.00 Pure hypercholesterolemia, unspecified; I10 Essential (primary) hypertension; Z87.891 Personal history of nicotine dependence; Z79.82 Long term (current) use of aspirin; Z79.899 Other long term (current) drug therapy; Z79.4 Long term (current) use of insulin
CPT/HCPCS: 80053; 85025; 85379; 86140; 94760; 96374; 96375; J2270; J2405

== ENCOUNTER 2020-07-26 17:27 | Emergency (ER) | payer MEDICARE, MEDICAID ==
[2020-07-26 17:57] LABS: Bilirubin Negative (Negative); Blood, Urine Large (Negative); Glucose, Urine (Dipstick) >=1000 mg/dL (Negative); Ketone, Urine Negative (Negative); Leukocyte Small (Negative); Nitrite Positive (Negative); Protein, Urine (Dipstick) 100 mg/dL (Neg-Trace); Specific Gravity, Urine 1.025 (1.005-1.030)
[2020-07-26 18:06] LABS: Clarity Hazy (Clear)
[2020-07-26 18:15] LABS: Bacteria/HPF 2+ HPF (None Seen); RBC/HPF Greater than 50 HPF (0-3); Squamous Epithelial 0-3 HPF (0-3); WBC/HPF Greater Than 50 HPF (0-3)
[2020-07-26] MEDS ORDERED: Cephalexin 250 MG CAP ONE (18:17)
== END 2020-07-26 18:57 | disposition home or self-care (01) ==
LOC: NAV ERS 17:27
DX: N39.0 Urinary tract infection, site not specified (principal); R31.9 Hematuria, unspecified; I25.2 Old myocardial infarction; K21.9 Gastro-esophageal reflux disease without esophagitis; E11.9 Type 2 diabetes mellitus without complications; E78.5 Hyperlipidemia, unspecified; E78.00 Pure hypercholesterolemia, unspecified; I10 Essential (primary) hypertension; Z87.891 Personal history of nicotine dependence; Z79.82 Long term (current) use of aspirin; Z79.4 Long term (current) use of insulin; Z79.899 Other long term (current) drug therapy
CPT/HCPCS: 81003; 81015; 99283